=== PATIENT | female | born 1965 | race Caucasian/White ===

== ENCOUNTER → 2020-05-26 13:35 | Outpatient (CLI) | payer OTHER, MEDICAID, SELFPAY ==
[2020-05-26 14:47] LABS: Hemoglobin A1C% w Est Avg Glu 7.7 % (4.0-6.0)
[2020-05-26 15:06] LABS: Alanine Aminotransferase 11 IU/L (<35); Albumin 4.5 g/dL (3.5-5.0); Albumin Globulin Ratio 1.4 (1.0-2.8); Alkaline Phosphatase 130 U/L (38-126); Aspartate Aminotransferase 19 IU/L (14-36); Bilirubin Total 0.6 mg/dL (0.2-1.3); Blood Urea Nitrogen 15 mg/dL (7-17); Calcium 10.1 mg/dL (8.4-10.2); Carbon Dioxide 26 mmol/L (22-32); Chloride 100 mmol/L (98-107); Cholesterol 197 mg/dL (140-199); Estimated Glomerular Filt Rate > 60.0 mL/min (>60); Globulin 3.3 g/dL (1.7-4.1); Glucose 125 mg/dL (70-100); HDL Cholesterol 52 mg/dL (40-60); HEMOLYSIS < 15 (0-50); LDL Cholesterol Calculated 110 mg/dL (<100); Potassium 4.7 mmol/L (3.4-5.1); Sodium 136 mmol/L (137-145); Total Protein 7.8 g/dL (6.3-8.2); Triglycerides 174 mg/dL (35-150)
[2020-05-26 15:07] LABS: Creatinine Urine Random 68.5 mg/dL
[2020-05-26 15:11] LABS: Microalbumi Creatinin Ratio Ur 8.7 ug/mg CR (<30); Microalbumin Urine Random < 0.6 mg/dL (0-1.6)
[2020-05-26 15:21] LABS: Vitamin D 25 Hydroxy (D3) 40.6 ng/mL (30.0-100.0)
== END ==
PROVIDERS: PCP Student in an Organized Health Care Education/Training Program; Referring Provider Student in an Organized Health Care Education/Training Program; Visit Provider Student in an Organized Health Care Education/Training Program
DX: E55.9 Vitamin D deficiency, unspecified (principal); Z78.0 Asymptomatic menopausal state; E11.69 Type 2 diabetes mellitus with other specified complication; E78.5 Hyperlipidemia, unspecified; I10 Essential (primary) hypertension
CPT/HCPCS: 36415; 80053; 80061; 82043; 82306; 82570; 83036

== ENCOUNTER → 2020-08-23 11:33 | Outpatient (CLI) | payer OTHER, MEDICAID, SELFPAY ==
[2020-08-23 12:06] LABS: Hemoglobin A1C% w Est Avg Glu 7.4 % (4.0-6.0)
== END ==
PROVIDERS: PCP Student in an Organized Health Care Education/Training Program; Referring Provider Student in an Organized Health Care Education/Training Program; Visit Provider Student in an Organized Health Care Education/Training Program
DX: E11.9 Type 2 diabetes mellitus without complications (principal)
CPT/HCPCS: 36415; 83036

== ENCOUNTER → 2020-10-06 13:44 | Outpatient (CLI) | payer OTHER, MEDICAID, SELFPAY | PROVIDERS: PCP Student in an Organized Health Care Education/Training Program; Visit Provider Student in an Organized Health Care Education/Training Program | DX: L02.91 Cutaneous abscess, unspecified (principal) | CPT/HCPCS: 87070; 87075; 87205 ==

== ENCOUNTER → 2021-02-12 13:41 | Outpatient (CLI) | payer OTHER, MEDICAID, SELFPAY ==
[2021-02-12 14:17] LABS: Hemoglobin A1C% w Est Avg Glu 5.6 % (4.0-6.0)
[2021-02-12 14:48] LABS: BUN Creatinine Ratio 25.3 (6-22); Blood Urea Nitrogen 22 mg/dL (7-17); Calcium 9.5 mg/dL (8.4-10.2); Carbon Dioxide 30 mmol/L (22-32); Chloride 102 mmol/L (98-107); Estimated Glomerular Filt Rate > 60.0 mL/min (>60); Glucose 123 mg/dL (70-100); HEMOLYSIS < 15 (0-50); Potassium 5.3 mmol/L (3.4-5.1); Sodium 138 mmol/L (137-145)
== END ==
PROVIDERS: PCP Student in an Organized Health Care Education/Training Program; Referring Provider Student in an Organized Health Care Education/Training Program; Visit Provider Student in an Organized Health Care Education/Training Program
DX: I10 Essential (primary) hypertension (principal); E11.9 Type 2 diabetes mellitus without complications
CPT/HCPCS: 36415; 80048; 83036

== ENCOUNTER → 2021-04-25 13:22 | Outpatient (CLI) | payer OTHER, MEDICAID, SELFPAY ==
--- NOTE | 2021-04-25 13:26 | DI.RAD.S_ITS ---
PROCEDURE: XR CERVICAL SPINE 2V OR 3V INDICATIONS: Hand numbness, bilateral TECHNIQUE: 3 view(s) of the cervical spine were acquired. COMPARISON: None. FINDINGS: Bones: No fractures or dislocations to the C7 level. Moderate degenerative change most pronounced at C4-C5. There are prominent osteophytes, intervertebral disc space height loss and endplate sclerosis. Uncovertebral joint hypertrophy. The lateral masses of C1 appear intact on the odontoid view. No suspicious bony lesions. Soft tissues: No prevertebral soft tissue swelling. IMPRESSION: Moderate degenerative change most pronounced at C4-C5. Dictated by: Donaldo Sosa M.D. on 04/25/2021 at 16:08 Approved by: Donaldo Sosa M.D. on 04/25/2021 at 16:10
== END ==
PROVIDERS: PCP Student in an Organized Health Care Education/Training Program; Referring Provider Student in an Organized Health Care Education/Training Program; Visit Provider Student in an Organized Health Care Education/Training Program
DX: R20.0 Anesthesia of skin (principal)
CPT/HCPCS: 72040

== ENCOUNTER → 2021-05-16 13:13 | Outpatient (CLI) | payer OTHER, MEDICAID, SELFPAY | PROVIDERS: PCP Student in an Organized Health Care Education/Training Program; Referring Provider Student in an Organized Health Care Education/Training Program; Visit Provider Student in an Organized Health Care Education/Training Program | DX: E11.9 Type 2 diabetes mellitus without complications (principal) | CPT/HCPCS: 36415; 83036 ==

== ENCOUNTER → 2021-10-10 10:58 | Outpatient (CLI) | payer OTHER, MEDICAID, SELFPAY ==
[2021-10-10 12:01] LABS: Hemoglobin A1C% w Est Avg Glu 5.5 % (4.0-6.0)
[2021-10-10 12:15] LABS: BUN Creatinine Ratio 22.1 (6-22); Blood Urea Nitrogen 19 mg/dL (7-17); Calcium 10.1 mg/dL (8.4-10.2); Carbon Dioxide 31 mmol/L (22-32); Chloride 103 mmol/L (98-107); Estimated Glomerular Filt Rate > 60.0 mL/min (>60); Glucose 106 mg/dL (70-100); HEMOLYSIS < 15 (0-50); Sodium 141 mmol/L (137-145)
[2021-10-10 12:16] LABS: Potassium 5.4 mmol/L (3.4-5.1)
== END ==
PROVIDERS: PCP Student in an Organized Health Care Education/Training Program; Referring Provider Student in an Organized Health Care Education/Training Program; Visit Provider Student in an Organized Health Care Education/Training Program
DX: I10 Essential (primary) hypertension (principal); E11.9 Type 2 diabetes mellitus without complications
CPT/HCPCS: 36415; 80048; 83036

== ENCOUNTER → 2022-06-26 14:27 | Outpatient (CLI) | payer OTHER, MEDICAID, SELFPAY ==
[2022-06-26 16:02] LABS: BUN Creatinine Ratio 16.3 (6-22); Blood Urea Nitrogen 13 mg/dL (7-17); Carbon Dioxide 30 mmol/L (22-32); Chloride 98 mmol/L (98-107); Creatine Kinase 58 U/L (30-135); Estimated Glomerular Filt Rate > 60 mL/min (>60); Glucose 239 mg/dL (70-100); HEMOLYSIS < 15 (0-50); Magnesium 2.2 mg/dL (1.6-2.3); Potassium 4.5 mmol/L (3.4-5.1); Sodium 135 mmol/L (137-145)
[2022-06-27 05:20] LABS: Fructosamine 356 umol/L (0-285)
== END ==
PROVIDERS: PCP Student in an Organized Health Care Education/Training Program; Referring Provider Student in an Organized Health Care Education/Training Program; Visit Provider Student in an Organized Health Care Education/Training Program
DX: E11.9 Type 2 diabetes mellitus without complications (principal); R21 Rash and other nonspecific skin eruption; R25.2 Cramp and spasm
CPT/HCPCS: 36415; 80048; 82550; 82985; 83735

== ENCOUNTER → 2022-10-07 13:53 | Outpatient (CLI) | payer OTHER, MEDICAID, SELFPAY ==
[2022-10-07 14:33] LABS: Hemoglobin A1C% w Est Avg Glu 9.6 % (4.0-6.0)
[2022-10-07 14:56] LABS: Creatinine Urine Random 44.5 mg/dL
[2022-10-07 15:02] LABS: Microalbumin Urine Random < 0.6 mg/dL (0-1.6)
== END ==
PROVIDERS: PCP Student in an Organized Health Care Education/Training Program; Referring Provider Student in an Organized Health Care Education/Training Program; Visit Provider Student in an Organized Health Care Education/Training Program
DX: E11.9 Type 2 diabetes mellitus without complications (principal)
CPT/HCPCS: 36415; 82043; 82570; 83036

== ENCOUNTER → 2023-12-24 11:16 | Outpatient (CLI) | payer OTHER, MEDICAID, SELFPAY ==
[2023-12-24 12:03] LABS: Add Manual Diff / Slide Review NO; Basophils Absolute Auto 100 /uL (0-100); Basophils Percent Auto 0.9 % (0-2); Eosinophils Absolute Auto 200 /uL (0-450); Eosinophils Percent Auto 3.7 % (2-4); Hematocrit 37.4 % (36-46); Hemoglobin 12.6 g/dL (12.0-16.0); Lymphocytes Absolute Auto 1100 /uL (1100-4500); Lymphocytes Percent Auto 18.2 % (25-40); Mean Corpuscular HGB Conc 33.7 % (30-36); Mean Corpuscular Hemoglobin 32.7 PG (26-34); Mean Corpuscular Volume 97.2 fL (80-100); Monocytes Absolute Auto 500 /uL (0-900); Monocytes Percent Auto 8.4 % (3-14); Neutrophils Absolute Auto 4300 /uL (1500-7000); Neutrophils Percent Auto 68.8 % (50-75); Platelet Count 219 X10^3/uL (150-400); Red Blood Cell Count 3.85 X10^6/uL (4.0-5.2); Red Cell Distribution Width 13.2 % (11.6-14.8); White Blood Cell Count 6.3 X10^3/uL (4.5-11.0)
[2023-12-24 12:06] LABS: UR Morphine/Opiate cutoff 300 Negative (Negative); Ur Creatinine Normal (Normal); Ur Specific Gravity Normal (Normal); Urine Amphetamines Negative (Negative); Urine Cocaine Negative (Negative); Urine Methamphetamines Negative (Negative); Urine Phencyclidine Negative (Negative); Urine Tetrahydrocannabinol Positive (Negative); Urine pH Normal (Normal)
[2023-12-24 12:07] LABS: Urine Barbiturates Negative (Negative); Urine Benzodiazepines Positive (Negative); Urine MDMA Negative (Negative); Urine Methadone Negative (Negative); Urine Oxycodone Negative (Negative); Urine Tricyclic Antidepressant Positive (Negative)
[2023-12-24 12:09] LABS: Hemoglobin A1C% w Est Avg Glu 7.3 % (4.0-6.0)
[2023-12-24 12:21] LABS: Alanine Aminotransferase 15 IU/L (<35); Albumin 3.8 g/dL (3.5-5.0); Albumin Globulin Ratio 1.2 (1.0-2.8); Alkaline Phosphatase 83 U/L (38-126); Aspartate Aminotransferase 24 IU/L (14-36); BUN Creatinine Ratio 18.8 (6-22); Bilirubin Total 0.5 mg/dL (0.2-1.3); Blood Urea Nitrogen 16 mg/dL (7-17); Carbon Dioxide 32 mmol/L (22-32); Chloride 97 mmol/L (98-107); Cholesterol 140 mg/dL (140-199); Estimated Glomerular Filt Rate > 60 mL/min (>60); Globulin 3.1 g/dL (1.7-4.1); Glucose 129 mg/dL (70-100); HDL Cholesterol 48 mg/dL (40-60); HEMOLYSIS < 15 (0-50); LDL Cholesterol Calculated 72 mg/dL (<100); Potassium 4.6 mmol/L (3.4-5.1); Sodium 135 mmol/L (137-145); Total Protein 6.9 g/dL (6.3-8.2); Triglycerides 101 mg/dL (35-150)
[2023-12-24 12:25] LABS: Microalbumin Urine Random < 0.6 mg/dL (0-1.6)
[2023-12-24 12:51] LABS: TSH w/ Reflex to FT4 1.39 uIU/mL (0.47-4.68)
== END ==
LOC: LAB 11:19
PROVIDERS: Family Medicine; PCP Family Medicine; Referring Provider Family Medicine; Visit Provider Family Medicine
DX: I10 Essential (primary) hypertension (principal); E11.69 Type 2 diabetes mellitus with other specified complication; E78.5 Hyperlipidemia, unspecified; E11.9 Type 2 diabetes mellitus without complications; F13.20 Sedative, hypnotic or anxiolytic dependence, uncomplicated; E66.01 Morbid (severe) obesity due to excess calories
CPT/HCPCS: 36415; 80053; 80061; 80305; 82043; 82570; 83036; 84443; 85025

== ENCOUNTER 2024-02-15 18:15 | Emergency (ER) | payer OTHER, MEDICAID, SELFPAY ==
[2024-02-15] VITALS (17 sets, daily range): BP systolic 138–209; BP diastolic 67–90; PULSE 90–106; RESP 14–18; TEMP 36.9; O2SAT 86–100; BMI 43.2
[2024-02-15 18:29] LABS: Add Manual Diff / Slide Review NO; Basophils Absolute Auto 100 /uL (0-100); Basophils Percent Auto 0.6 % (0-2); Eosinophils Absolute Auto 200 /uL (0-450); Eosinophils Percent Auto 1.5 % (2-4); Hematocrit 40.8 % (36-46); Hemoglobin 13.6 g/dL (12.0-16.0); Lymphocytes Absolute Auto 1500 /uL (1100-4500); Lymphocytes Percent Auto 13.4 % (25-40); Mean Corpuscular HGB Conc 33.3 % (30-36); Mean Corpuscular Hemoglobin 32.9 PG (26-34); Mean Corpuscular Volume 98.8 fL (80-100); Monocytes Absolute Auto 900 /uL (0-900); Monocytes Percent Auto 7.7 % (3-14); Neutrophils Absolute Auto 8900 /uL (1500-7000); Neutrophils Percent Auto 76.8 % (50-75); Platelet Count 225 X10^3/uL (150-400); Red Blood Cell Count 4.13 X10^6/uL (4.0-5.2); Red Cell Distribution Width 13.8 % (11.6-14.8); White Blood Cell Count 11.6 X10^3/uL (4.5-11.0)
--- NOTE | 2024-02-15 18:39 | ED_ITS ---
HPI - Nausea/Vomiting/Diarrhea General Chief complaint: Nausea/Vomiting/Diarrhea Stated complaint: NAUSEA, CRAMPING, DIARRHEA Time Seen by Provider: 02/15/24 18:16 Source: patient Mode of arrival: Ambulatory History of Present Illness HPI Narrative: 58-year-old female who is here for evaluation of approximately 5 days of nausea and abdominal cramping and diarrhea. States her symptoms 1st started with the abdominal cramping. She did have some bright red blood in her stool. States she put herself on a clear liquid diet. When a couple days on a clear liquid diet. [place] like her symptoms did improve. Today she stated that she tried to introduce solid foods and the diarrhea returned in the nausea returned in the abdominal cramping returned. No fevers. No recent travel. No recent antibiotics. No urinary symptoms. No vaginal bleeding. No prior abdominal surgeries. Describes the abdominal cramping is diffuse throughout her abdomen. No chest pain or shortness of breath Related Data Home Medications Medication Instructions Recorded Confirmed aspirin 81 mg tablet,delayed 81 mg PO DAILY 05/26/20 12/24/23 release apple cider vinegar 450mg 1 tab PO DAILY 11/05/23 12/24/23 ceyon cinnamon 1200mg 1 tab PO DAILY 11/05/23 12/24/23 cholecalciferol (vitamin D3) 50 50 mcg PO DAILY 11/05/23 12/24/23 mcg (2,000 unit) capsule chromium 200 mcg-brindal nair 500 1 tab PO ONCE 11/05/23 12/24/23 mg tablet (Garcinia Cambogia) cyanocobalamin (vitamin B-12) 500 500 mcg sublingual DAILY 11/05/23 12/24/23 mcg sublingual tablet oexyyriq-zvf-mdxip ac 400 tab PO 11/05/23 12/24/23 mcg-calcium carb 500 mg-vit K1 20 mcg tablet (Women's 50 Plus Multivitamin) blood sugar diagnostic (True #10 ea 12/24/23 12/24/23 Metrix Glucose Test Strip) Previous Rx's Medication Instructions Recorded glucose meter #1 ea 08/05/23 glucose test trips #100 ea 08/05/23 atorvastatin 40 mg tablet 40 mg PO BEDTIME #90 tabs 08/07/23 buspirone 10 mg tablet 10 mg PO TID #270 tabs 10/03/23 escitalopram oxalate 20 mg tablet 20 mg PO DAILY #90 tabs 10/03/23 lisinopril 10 mg tablet See Rx Instructions .Route 10/03/23 .COMPLEX #90 tabs pioglitazone 30 mg tablet 30 mg PO DAILY #90 tabs 10/03/23 sitagliptin phosphate 100 mg tablet 100 mg PO DAILY #90 tabs 10/03/23 exenatide microspheres 2 mg/0.85 2 mg (0.85 mL) SUBCUT Q7D #3.4 mL 12/25/23 mL subcutaneous auto-injector alprazolam 0.5 mg tablet 0.5 mg PO BID PRN anxiety #20 tabs 12/29/23 gabapentin 300 mg capsule 900 mg (3 x 300 mg) PO BID #540 12/29/23 caps alprazolam 0.5 mg tablet 0.5 mg PO BID PRN anxiety #20 tabs 12/31/23 amitriptyline 100 mg tablet 100 mg PO DAILY #30 tabs 02/09/24 Allergies Allergy/AdvReac Type Severity Reaction Status Date / Time No Known Drug Allergies Allergy Verified 02/15/24 18:22 Review of Systems Review of Systems Narrative: See HPI Patient History Medical History Degenerative disk disease Osteoarthritis of cervical spine determined by x-ray Takayasu's arteritis Social History Smoking Status: Former smoker Smoking Status: Former smoker Substance Use Type: does not use Exam Initial Vital Signs Initial Vital Signs: Vital Signs Pulse Oximetry 100 02/15/24 18:18 Const General: cooperative, comfortable and No ill appearing [facility] Head: normal to inspection and normocephalic Resp Effort & Inspection: normal respiratory effort Auscultation: clear to auscultation bilaterally Cardio Rate: regular rate Rhythm: regular rhythm GI Inspection: normal to inspection and non-distended Palpation: soft, No firm, No guarding and tender Skin General: no rashes or lesions noted Neuro General: patient alert, patient awake, patient oriented x3 and moves all extremities Extrem General: capillary refill normal Course Orders Ordered: ED Orders 02/15/24 18:20 Complete Blood Count AUTO DIFF Stat Comprehensive Metabolic Panel Stat Lipase Stat 02/15/24 18:39 CT abdomen pelvis w con Stat Discontinued Medications Sodium Chloride (Normal Saline 0.9%) 1,000 mls @ 1,000 mls/hr IV BOLUS ONE Stop: 02/15/24 19:21 Last Infusion: 02/15/24 20:14 Dose: Infused Documented By: Admin: 02/15/24 18:41 Dose: 1,000 mls/hr Documented By: WOODROW Lorazepam (Lorazepam 2 Mg/Ml Inj) 1 mg IV NOW ONE Stop: 02/15/24 20:50 Last Admin: 02/15/24 20:52 Dose: 1 mg Documented By: LAURA Metoclopramide HCl (Metoclopramide 10 Mg/2 Ml Inj) 10 mg IV NOW ONE Stop: 02/15/24 20:05 Last Admin: 02/15/24 20:14 Dose: 10 mg Documented By: LAURA Morphine Sulfate (Morphine 4 Mg/Ml Inj) 4 mg IV NOW ONE Stop: 02/15/24 19:22 Last Admin: 02/15/24 19:28 Dose: 4 mg Documented By: LAURA Ondansetron HCl (Ondansetron 4 Mg/2 Ml Inj) 4 mg IV NOW ONE Stop: 02/15/24 18:40 Last Admin: 02/15/24 18:42 Dose: 4 mg Documented By: WOODROW Ondansetron HCl (Ondansetron 4 Mg Odt Prepack) 1 bottle MISC DIRECTED ONE Stop: 02/15/24 21:34 Last Admin: 02/16/24 00:25 Dose: 1 bottle Vital Signs Vital signs: Vital Signs - 8 hr 02/15/24 18:18 02/15/24 18:19 02/15/24 18:19 Temperature Pulse Rate 104 H Respiratory Rate 18 Blood Pressure 209/89 H Pulse Oximetry 100 96 Oxygen Delivery Method Room Air Oxygen Flow Rate 02/15/24 18:22 02/15/24 18:30 02/15/24 18:30 Temperature 98.4 F Pulse Rate 106 H 90 Respiratory Rate 18 Blood Pressure 209/89 H 188/86 H Pulse Oximetry 95 98 Oxygen Delivery Method Room Air Oxygen Flow Rate 02/15/24 19:07 02/15/24 19:18 02/15/24 19:18 Temperature Pulse Rate 95 H 97 H Respiratory Rate Blood Pressure 189/90 H Pulse Oximetry 92 92 Oxygen Delivery Method Oxygen Flow Rate 02/15/24 19:30 02/15/24 20:00 02/15/24 20:00 Temperature Pulse Rate 100 H 93 H Respiratory Rate 16 Blood Pressure 201/89 H Pulse Oximetry 94 93 Oxygen Delivery Method Room Air Oxygen Flow Rate 02/15/24 20:30 02/15/24 21:38 02/15/24 21:38 Temperature Pulse Rate 92 H 96 H Respiratory Rate 14 Blood Pressure 138/67 Pulse Oximetry 94 86 L Oxygen Delivery Method Room Air Oxygen Flow Rate 02/15/24 21:40 02/15/24 21:41 02/15/24 22:00 Temperature Pulse Rate 91 H Respiratory Rate 16 16 Blood Pressure Pulse Oximetry 89 L 92 96 Oxygen Delivery Method Nasal Cannula Nasal Cannula Nasal Cannula Oxygen Flow Rate 2 2.5 2.5 02/15/24 22:30 02/15/24 23:00 02/15/24 23:30 Temperature Pulse Rate 92 H 95 H 98 H Respiratory Rate 16 16 Blood Pressure Pulse Oximetry 97 96 90 L Oxygen Delivery Method Room Air Room Air Oxygen Flow Rate 02/15/24 23:43 02/15/24 23:43 02/16/24 00:00 Temperature Pulse Rate 93 H 95 H Respiratory Rate 14 16 Blood Pressure 176/72 H Pulse Oximetry 86 L 97 Oxygen Delivery Method Room Air Nasal Cannula Oxygen Flow Rate 2.5 MDM - Nausea/Vomiting/Diarrhea Lab Data Attestation: I reviewed the patient's lab results. 02/15/24 18:20 02/15/24 18:20 Labs: Lab Results 02/15/24 Range/Units 18:20 WBC 11.6 H (4.5-11.0) X10^3/uL RBC 4.13 (4.0-5.2) X10^6/uL Hgb 13.6 (12.0-16.0) g/dL Hct 40.8 (36-46) % MCV 98.8 (80-100) fL MCH 32.9 (26-34) PG MCHC 33.3 (30-36) % RDW 13.8 (11.6-14.8) % Plt Count 225 (150-400) X10^3/uL Neut % (Auto) 76.8 H (50-75) % Lymph % (Auto) 13.4 L (25-40) % Citrus % (Auto) 7.7 (3-14) % Eos % (Auto) 1.5 L (2-4) % Baso % (Auto) 0.6 (0-2) % Neut # (Auto) 8900 H (3620-8069) /uL Lymph # (Auto) 1500 (6682-7037) /uL Citrus # (Auto) 900 (0-900) /uL Eos # (Auto) 200 (0-450) /uL Baso # (Auto) 100 (0-100) /uL Sodium 133 L (137-145) mmol/L Potassium 4.2 (3.4-5.1) mmol/L Chloride 97 L (98-107) mmol/L Carbon Dioxide 28 (22-32) mmol/L BUN 17 (7-17) mg/dL Creatinine 0.94 (0.52-1.04) mg/dL Estimated GFR > 60 (>60) mL/min BUN/Creatinine Ratio 18.1 (6-22) Glucose 214 H (70-100) mg/dL Calcium 9.4 (8.4-10.2) mg/dL Total Bilirubin 0.8 (0.2-1.3) mg/dL AST 35 (14-36) IU/L ALT 17 (<35) IU/L Alkaline Phosphatase 100 (38-126) U/L Total Protein 8.0 (6.3-8.2) g/dL Albumin 4.2 (3.5-5.0) g/dL Globulin 3.8 (1.7-4.1) g/dL Albumin/Globulin Ratio 1.1 (1.0-2.8) Lipase 104 (23-300) U/L Urine Dip Bedside Urine Glucose Negative Bedside Urine Bilirubin - Negative Bedside Urine Ketone +/- 5 Urine Specific [place] 1.010 Bedside Urine Occult Blood - Negative Bedside Urine pH 5.5 Bedside Urine Protein - Negative Bedside Urine Urobilinogen - Negative Bedside Urine Nitrite - Negative Bedside Urine Leukocytes - Negative Esterase Imaging Data CT scan - abdomen/pelvis: Radiologist's Impression: PROCEDURE: CT ABDOMEN PELVIS W CON INDICATIONS: Generalized abdominal pain with diarrhea and bleeding TECHNIQUE: After the administration of intravenous contrast, axial sections acquired from the lung bases to the pubic symphysis. Coronal and sagittal reformats were performed. For radiation dose reduction, the following was used: automated exposure control, adjustment of mA and/or kV according to patient size. COMPARISON: None. FINDINGS: Image quality: Diagnostic Lower chest: Unremarkable lung bases. Possible coronary calcifications. Mildly patulous distal esophagus. Liver: No discrete solid lesion. Possible right lobe small granuloma. Gallbladder and biliary system: Unremarkable, nondilated Pancreas: No ductal dilation. Mild parenchymal atrophy Spleen: Nonenlarged Adrenals: No discrete nodule Kidneys: There are renal cysts. No complicated cystic lesion or solid lesion requiring follow-up. No hydronephrosis. Vessels and lymph nodes: The main portal vein is patent. No abdominal aortic aneurysm or pathologic lymph nodes by size criteria. Bowel and peritoneum: Ujxu-gl-qzybxwww distention of the stomach. No pathologic ascites or drainable abscess. Mild focal inflammatory changes at the distal descending colon and proximal sigmoid colon. Colonic diverticula are present. The appendix is nondilated. Cfqt-ki-eiykwbvr mesenteric fat stranding is present in the jejunal mesentery, sometimes seen sequelae of mesenteric panniculitis, nonspecific. Body wall: Unremarkable Pelvis: Bladder is under distended and not well evaluated. Uterus is absent. Bones: Degenerative changes, no acute or suspicious abnormality. Upper lumbar spine sclerosis likely related to [place] changes. IMPRESSION: Suspected distal colitis. Diverticula are also present, however there is no definite focal acute inflammation. Consider correlation with age-appropriate colonoscopy results following treatment. No small bowel obstruction or abscess. Other findings as above. MDM Narrative Medical decision making narrative: CT scan shows colitis but no signs of acute surgical pathology. No recent travel. No recent antibiotics. There was no indication for antibiotics based on her symptoms and CT scan findings today. Labs are relatively unremarkable. Patient initially was discharged but then did have an episode of hypoxia. I suspect that this was the Ativan. She was kept here in the emergency department for extended period of time. When she was awake and walking around she had no episodes of hypoxia. She fell asleep she did become hypoxic into the upper 80s. I suspect this is baseline for her. She was asymptomatic from it. She was clinically sober. Will discharge patient home with instructions follow-up with primary doctor. She was given return precautions. Discharge Plan Departure Patient Disposition: Home Clinical Impression: Colitis Instructions: DI for Diarrhea and Traveler's Diarrhea -- Adult, DI for Colitis Activity Restrictions/Additional Instructions: I do recommend that you continue to take all of your medications as directed. I also recommend a bland diet and using the nausea medication as needed. Contact your primary care doctor for a follow-up. Return to the emergency department for new symptoms. Prescriptions: No Action cyanocobalamin (vitamin B-12) 500 mcg tablet, sublingual 500 mcg sublingual DAILY cholecalciferol (vitamin D3) 50 mcg (2,000 unit) capsule 50 mcg PO DAILY apple cider vinegar 450mg 1 tab PO DAILY ceyon cinnamon 1200mg 1 tab PO DAILY Garcinia Cambogia 200-500 mcg-mg tablet 1 tab PO ONCE Women's 50 Plus Multivitamin 400 mcg-500 mg calcium-20 mcg tablet PO pioglitazone 30 mg tablet 30 mg PO DAILY Qty: 90 1RF sitagliptin phosphate 100 mg tablet 100 mg PO DAILY Qty: 90 1RF Hold Instructions: Needs labs lisinopril 10 mg tablet See Rx Instructions .ROUTE .COMPLEX Qty: 90 1RF Dose Instruction: TAKE ONE TABLET BY MOUTH ONE TIME DAILY Rx Instructions: TAKE ONE TABLET BY MOUTH ONE TIME DAILY buspirone 10 mg tablet 10 mg PO TID Qty: 270 1RF escitalopram oxalate 20 mg tablet 20 mg PO DAILY Qty: 90 1RF atorvastatin 40 mg tablet 40 mg PO BEDTIME Qty: 90 1RF Hold Instructions: Needs labs exenatide microspheres 2 mg/0.85 mL auto-injector 2 mg SUBCUT Q7D Qty: 3.4 2RF alprazolam 0.5 mg tablet 0.5 mg PO BID PRN (Reason: anxiety) Qty: 20 0RF gabapentin 300 mg capsule 900 mg PO BID Qty: 540 0RF alprazolam 0.5 mg tablet 0.5 mg PO BID PRN (Reason: anxiety) Qty: 20 0RF amitriptyline 100 mg tablet 100 mg PO DAILY Qty: 30 1RF aspirin 81 mg tablet,delayed release (DR/EC) 81 mg PO DAILY (DME) True Metrix Glucose Test Strip Strip See Rx Instructions .ROUTE .MEDSUPPLY Qty: 10 Patient Comments: [NO ORIGINAL SIG] Rx Instructions: As directed (DME) glucose meter See Rx Instructions .Route .MEDSUPPLY Qty: 1 0RF Rx Instructions: check blood sugars once a day (DME) glucose test trips See Rx Instructions .Route .MEDSUPPLY Qty: 100 1RF Rx Instructions: check blood sugars once a day Referrals: Michelle Verde DO [Primary Care Provider] - Stand Alone Forms: Patient Portal/API
[2024-02-15 18:41] LABS: Alanine Aminotransferase 17 IU/L (<35); Albumin 4.2 g/dL (3.5-5.0); Albumin Globulin Ratio 1.1 (1.0-2.8); Alkaline Phosphatase 100 U/L (38-126); Aspartate Aminotransferase 35 IU/L (14-36); BUN Creatinine Ratio 18.1 (6-22); Bilirubin Total 0.8 mg/dL (0.2-1.3); Blood Urea Nitrogen 17 mg/dL (7-17); Calcium 9.4 mg/dL (8.4-10.2); Carbon Dioxide 28 mmol/L (22-32); Chloride 97 mmol/L (98-107); Estimated Glomerular Filt Rate > 60 mL/min (>60); Globulin 3.8 g/dL (1.7-4.1); Glucose 214 mg/dL (70-100); Lipase 104 U/L (23-300); Sodium 133 mmol/L (137-145)
[2024-02-15] MEDS: SODIUM CHLORIDE 0.9% 1,000 ML 1000 ML IV (18:41)
[2024-02-15] MEDS: ONDANSETRON 4 MG/2 ML INJ IV (18:42)
[2024-02-15 18:45] LABS: HEMOLYSIS 58 (0-50)
[2024-02-15 18:46] LABS: Potassium 4.2 mmol/L (3.4-5.1)
[2024-02-15] MEDS: MORPHINE 4 MG/ML INJ IV (19:28)
[2024-02-15] MEDS: METOCLOPRAMIDE 10 MG/2 ML INJ IV (20:14)
[2024-02-15] MEDS: LORazepam 2 MG/ML INJ 1 MG IV (20:52)
[2024-02-16] VITALS: PULSE 95; RESP 16; O2SAT 97
[2024-02-16 00:15] VITALS: RESP 16; O2SAT 96
--- NOTE | 2024-02-16 00:20 | PC.NURSE ---
Patient sitting up out of bed, attempting to eat some crackers. patient is no longer using supplemental O2. On RA, spO2 >95%. Patient has been ambulatory to bathroom. She denies any weakness/lightheadedness/dizziness. Patient reports being comfortable with going home at this time. MD updated and discharge paperwork prepared and patient provided with pre-pack of ODT Zofran.
[2024-02-16] MEDS: ONDANSETRON 4 MG ODT PREPACK 1 BOTTLE MISC (00:25)
== END 2024-02-16 00:35 | disposition home or self-care (01) ==
PROVIDERS: Emergency Provider Emergency Medicine; PCP Family Medicine
DX: K52.9 Noninfective gastroenteritis and colitis, unspecified (principal)
CPT/HCPCS: 74177; 80053; 81003; 83690; 85025; 96361; 96374; 96375; 99284; J2060; J2270; J2405; J2765; Q9967

== ENCOUNTER → 2024-11-30 13:21 | Outpatient (CLI) | payer OTHER, SELFPAY ==
[2024-11-30 14:31] LABS: Add Manual Diff / Slide Review NO; Basophils Absolute Auto 100 /uL (0-100); Basophils Percent Auto 0.9 % (0-2); Eosinophils Absolute Auto 200 /uL (0-450); Eosinophils Percent Auto 2.3 % (2-4); Hemoglobin 13.5 g/dL (12.0-16.0); Lymphocytes Absolute Auto 1300 /uL (1100-4500); Lymphocytes Percent Auto 18.9 % (25-40); Mean Corpuscular HGB Conc 32.9 % (30-36); Mean Corpuscular Hemoglobin 32.5 PG (26-34); Mean Corpuscular Volume 98.7 fL (80-100); Monocytes Absolute Auto 500 /uL (0-900); Monocytes Percent Auto 7.1 % (3-14); Neutrophils Absolute Auto 4700 /uL (1500-7000); Neutrophils Percent Auto 70.8 % (50-75); Platelet Count 227 X10^3/uL (150-400); Red Blood Cell Count 4.15 X10^6/uL (4.0-5.2); Red Cell Distribution Width 13.6 % (11.6-14.8); White Blood Cell Count 6.7 X10^3/uL (4.5-11.0)
[2024-11-30 14:52] LABS: Hemoglobin A1C% w Est Avg Glu 6.9 % (4.0-6.0)
[2024-11-30 14:56] LABS: Alanine Aminotransferase 15 IU/L (<35); Albumin 4.3 g/dL (3.5-5.0); Albumin Globulin Ratio 1.5 (1.0-2.8); Alkaline Phosphatase 93 U/L (38-126); Aspartate Aminotransferase 29 IU/L (14-36); BUN Creatinine Ratio 18.6 (6-22); Bilirubin Total 0.5 mg/dL (0.2-1.3); Blood Urea Nitrogen 16 mg/dL (7-17); Calcium 9.5 mg/dL (8.4-10.2); Carbon Dioxide 31 mmol/L (22-32); Chloride 100 mmol/L (98-107); Cholesterol 163 mg/dL (140-199); Estimated Glomerular Filt Rate > 60 mL/min (>60); Globulin 2.8 g/dL (1.7-4.1); Glucose 147 mg/dL (80-110); HDL Cholesterol 75 mg/dL (40-60); HEMOLYSIS 19 (0-50); HEMOLYSIS 28 (0-50); Iron 75 ug/dL (37-170); LDL Cholesterol Calculated 69 mg/dL (<100); Magnesium 1.8 mg/dL (1.6-2.3); Potassium 5.2 mmol/L (3.4-5.1); Sodium 137 mmol/L (137-145); Total Protein 7.1 g/dL (6.3-8.2); Triglycerides 97 mg/dL (35-150)
[2024-11-30 15:07] LABS: Percent Iron Saturation 31 % (15-50); Total Iron Binding Capacity 243 ug/dL (265-497); Transferrin 224 mg/dL (206-381)
[2024-11-30 15:19] LABS: Creatinine Urine Random 63.91 mg/dL
[2024-11-30 15:25] LABS: Microalbumin Urine Random < 0.6 mg/dL (0-1.6)
[2024-11-30 15:41] LABS: Vitamin B12 > 1000 pg/mL (239-931)
== END ==
PROVIDERS: PCP Family Medicine; Referring Provider Family Medicine; Visit Provider Family Medicine
DX: G47.62 Sleep related leg cramps (principal); R25.1 Tremor, unspecified; I10 Essential (primary) hypertension; E11.69 Type 2 diabetes mellitus with other specified complication; F13.20 Sedative, hypnotic or anxiolytic dependence, uncomplicated; E78.5 Hyperlipidemia, unspecified; Z68.41 Body mass index [BMI] 40.0-44.9, adult; Z79.899 Other long term (current) drug therapy
CPT/HCPCS: 36415; 80053; 80061; 82043; 82570; 82607; 83036; 83540; 83550; 83735; 85025

== ENCOUNTER 2024-12-15 10:45 | Emergency (ER) | payer OTHER, SELFPAY ==
[2024-12-15 10:49] VITALS: BP 116/59; PULSE 74; RESP 26; TEMP 36.8; O2SAT 92; BMI 41.9
--- NOTE | 2024-12-15 10:54 | DI.RAD.S_ITS ---
PROCEDURE: XR CHEST 1V INDICATIONS: wheezing, cough, r/o PNA TECHNIQUE: One view of the chest was acquired. COMPARISON: None. FINDINGS: Surgical changes and devices: None. Lungs and pleura: No dense airspace disease or pleural effusions Mediastinum: Normal heart size Bones and chest wall: Mild degenerative changes IMPRESSION: No acute radiographic abnormality on this single view study. Dictated by: Archie Ruiz M.D. on 12/15/2024 at 11:34 Approved by: Archie Ruiz M.D. on 12/15/2024 at 11:35
[2024-12-15 11:00] VITALS: PULSE 78; O2SAT 93
--- NOTE | 2024-12-15 11:03 | EKG_ITS ---
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
--- NOTE | 2024-12-15 11:20 | ED_ITS ---
HPI - URI/Sore Throat General Chief Complaint: Shortness of Breath/Dyspnea Stated Complaint: Per patient might have Pneumonia Time Seen by Provider: 12/15/24 11:14 History of Present Illness HPI Narrative: Patient here for cough cold congestion for the past 6 days. No known sick contacts. Patient lives alone. Patient has stopped smoking about 3 years ago. No previous diagnosis of emphysema COPD or asthma. Feels short of breath. Patient has dry cough during exam. Chest hurts when she coughs. Not requiring supplemental oxygen. Related Data Home Medications Medication Instructions Recorded Confirmed aspirin 81 mg tablet,delayed 81 mg PO DAILY 05/26/20 10/28/24 release apple cider vinegar 450mg 1 tab PO DAILY 11/05/23 10/28/24 cholecalciferol (vitamin D3) 50 50 mcg PO DAILY 11/05/23 10/28/24 mcg (2,000 unit) capsule cyanocobalamin (vitamin B-12) 500 500 mcg sublingual DAILY 11/05/23 10/28/24 mcg sublingual tablet thncbkam-dam-fmjfh ac 400 tab PO 11/05/23 10/28/24 mcg-calcium carb 500 mg-vit K1 20 mcg tablet (Women's 50 Plus Multivitamin) blood sugar diagnostic (True #10 ea 12/24/23 10/28/24 Metrix Glucose Test Strip) ashwagandha root extract 300 mg mg PO 08/31/24 10/28/24 capsule Previous Rx's Medication Instructions Recorded glucose meter #1 ea 08/05/23 glucose test trips #100 ea 08/05/23 furosemide 20 mg tablet (Lasix) 10 mg (1/2 x 20 mg) PO DAILY PRN 07/28/24 edema #10 tabs escitalopram oxalate 20 mg tablet 20 mg PO DAILY #90 tabs 08/31/24 buspirone 30 mg tablet 30 mg PO BID anxiety #60 tabs 09/29/24 sitagliptin phosphate 100 mg 100 mg PO DAILY #90 tabs 09/30/24 tablet (Januvia) lisinopril 10 mg tablet See Rx Instructions .Route 10/25/24 .COMPLEX #90 tabs gabapentin 300 mg capsule 900 mg (3 x 300 mg) PO BID #540 10/26/24 caps pioglitazone 30 mg tablet 30 mg PO DAILY #90 tabs 10/26/24 diclofenac potassium 25 mg tablet 25 mg PO DAILY PRN pain #20 tabs 10/28/24 atorvastatin 40 mg tablet 40 mg PO BEDTIME #90 tabs 11/01/24 pen needle, diabetic 32 gauge x #6 ea 11/03/2411/27 (BD Ultra-Fine Micro Pen Needle) semaglutide 0.25 mg or 0.5 mg (2 0.5 mg (0.736 mL) SUBCUT QWEEK #3 11/03/24 mg/3 mL) subcutaneous pen injector mL (Ozempic) alprazolam 0.5 mg tablet See Rx Instructions .Route 11/30/24 .COMPLEX #20 tabs eszopiclone 3 mg tablet 3 mg PO BEDTIME PRN insomnia #30 11/30/24 tabs albuterol sulfate 90 mcg/actuation 2 inhalation inhalation QID PRN 12/15/24 aerosol inhaler (Ventolin HFA) shortness of breath or wheezing #6.7 grams benzonatate 100 mg capsule 100 mg PO TID PRN cough #20 caps 12/15/24 Allergies Allergy/AdvReac Type Severity Reaction Status Date / Time No Known Drug Allergies Allergy Verified 10/28/24 12:58 Review of Systems Review of Systems Narrative: GENERAL: Positive chills, fatigue, malaise, negative fever, sweats. HEENT: Negative sinus pain, ear pain, sore throat RESPIRATORY: Negative dyspnea, positive cough CARDIOVASCULAR: Negative chest pain, palpitations GASTROINTESTINAL: Negative nausea, vomiting, abdominal pain : Negative dysuria, frequency, hematuria MUSCULOSKELETAL: Positive muscle or bony pain SKIN: Negative rash, skin lesions NEUROLOGIC: Negative weakness, numbness ROS Unobtainable: All systems reviewed & are unremarkable except as noted in HPI and below Patient History Medical History (Updated 12/15/24 @ 12:09 by Torey Mendez MD) Insomnia due to anxiety and fear Degenerative disk disease Osteoarthritis of cervical spine determined by x-ray Takayasu's arteritis Social History Smoking Status: Former smoker Smoking Status: Former smoker Exam Narrative Exam Narrative: GENERAL: in no distress, not toxic not dyspneic HEAD: Normocephalic. EYES: Pupils equal round ENT: Mucous membranes moist. NECK: Trachea midline. CARDIOVASCULAR: Regular rate and rhythm RESPIRATORY: Clear to auscultation. Breath sounds equal bilaterally. No wheezes, rales, or rhonchi. There is slightly diminished lung sounds bilaterally. Patient is speaking full sentences. No respiratory distress. GASTROINTESTINAL: Abdomen soft, non-tender EXTREMITIES: No gross deformities. BACK: No flank tenderness. NEURO: AOx4. SKIN: Warm and dry PSYCH: Not anxious, is cooperative Initial Vital Signs Initial Vital Signs: Vital Signs Temperature 98.2 F 12/15/24 10:49 Pulse Rate 74 12/15/24 10:49 Respiratory Rate 26 H 12/15/24 10:49 Blood Pressure 116/59 L 12/15/24 10:49 Pulse Oximetry 92 12/15/24 10:49 Oxygen Delivery Method Room Air 12/15/24 10:49 Course Orders Ordered: ED Orders 12/15/24 10:54 XR chest 1V Stat EKG-12 Lead Stat 12/15/24 11:00 Covid-19 + FLU A/B + RSV - PCR Stat Discontinued Medications Albuterol (Albuterol 2.5 Mg/3 Ml Neb (Adult)) 2.5 mg INH NOW ONE Stop: 12/15/24 11:20 Last Admin: 12/15/24 11:32 Dose: 2.5 mg Documented By: ABNER Benzonatate (Benzonatate 100 Mg Capsule) 200 mg PO NOW ONE Stop: 12/15/24 11:20 Last Admin: 12/15/24 11:31 Dose: 200 mg Documented By: ABNER Vital Signs Vital signs: Vital Signs - 8 hr 12/15/24 10:49 12/15/24 11:00 12/15/24 11:30 Temperature 98.2 F Pulse Rate 74 78 65 Respiratory Rate 26 H Blood Pressure 116/59 L Pulse Oximetry 92 93 95 Oxygen Delivery Method Room Air Nasal Cannula Oxygen Flow Rate 1 12/15/24 11:48 12/15/24 11:48 12/15/24 12:00 Temperature Pulse Rate 68 Respiratory Rate Blood Pressure 120/53 L 119/58 L Pulse Oximetry 93 Oxygen Delivery Method Nasal Cannula Oxygen Flow Rate 1 12/15/24 12:00 Temperature Pulse Rate 59 L Respiratory Rate Blood Pressure Pulse Oximetry 91 Oxygen Delivery Method Room Air Oxygen Flow Rate MDM - URI/Sore Throat Lab Data Labs: Lab Results 12/15/24 Range/Units 11:00 SARS-CoV-2 (PCR) Negative (Negative) Influenza A (RT-PCR) Flu a positive H (NEGATIVE) Influenza B (RT-PCR) Flu b negative (NEGATIVE) RSV (PCR) Negative (Negative) Imaging Data Chest x-ray: Radiologist's Impression: [address] [address] XRay Report Signed Patient: Elvie Shipman MR#: [id number] : 1965 Acct:[id number] Age/Sex: 59 / F Date of Service: 12/15/24 Loc: ED Accession Number: [id number] Procedure: XR chest 1V Ordering Provider: Torey Mendez MD PROCEDURE: XR CHEST 1V INDICATIONS: wheezing, cough, r/o PNA TECHNIQUE: One view of the chest was acquired. COMPARISON: None. FINDINGS: Surgical changes and devices: None. Lungs and pleura: No dense airspace disease or pleural effusions Mediastinum: Normal heart size Bones and chest wall: Mild degenerative changes IMPRESSION: No acute radiographic abnormality on this single view study. Dictated by: Archie Ruiz M.D. on 12/15/2024 at 11:34 Approved by: Archie Ruiz M.D. on 12/15/2024 at 11:35 [facility] Narrative Medical decision making narrative: Patient here for cough cold congestion for the past 6 days. No known sick contacts. Patient lives alone. Patient has stopped smoking about 3 years ago. No previous diagnosis of emphysema COPD or asthma. Feels short of breath. Patient has dry cough during exam. Chest hurts when she coughs. Not requiring supplemental oxygen. After history and exam EKG chest x-ray respiratory panel albuterol nebulizer Fannysalon Maria G [facility] Medical records reviewed: No recent visit for this complaint Differential considered: Includes but not limited to COVID influenza RSV pneumonia bronchitis Lab Test results independently reviewed as above. Pertinent findings: Respiratory panel positive influenza Independently reviewed EKG normal sinus rhythm rate 70 Imaging studies independently reviewed: Chest x-ray no acute finding Treatments: Albuterol Tessalon Perles Re-evaluations: 12:11 p.m.. Patient feeling much better. [place] better after nebulizer as well as cough medication. Reviewed results with her. Not requiring supplemental oxygen. She desires discharge home. Review with their tested positive for the flu. Discussion: Appropriate for discharge home exam is reassuring. No antibiotics are indicated. No pneumonia. Not requiring supplemental oxygen. No respiratory distress. Return precautions reviewed. She desires discharge home. Diagnosis: Influenza bronchitis Discharge Plan Departure Patient Disposition: Home Clinical Impression: Influenza A Acute bronchitis Qualifiers: Bronchitis organism: other organism Qualified Code(s): J20.8 - Acute bronchitis due to other specified organisms Instructions: DI for Acute Bronchitis, DI for Influenza -- Adult Activity Restrictions/Additional Instructions: You have bronchitis from infection with influenza/the flu. No antibiotics are needed. Cough medication and inhaler has been sent to your pharmacy to draft [facility] today. Keep well hydrated. Return if worse if any questions or concerns. Prescriptions: New benzonatate 100 mg capsule 100 mg PO TID PRN (Reason: cough) Qty: 20 0RF albuterol sulfate [Ventolin HFA] 90 mcg/actuation HFA aerosol inhaler 2 inhalation INHALATION QID PRN (Reason: shortness of breath or wheezing) Qty: 6.7 0RF No Action cyanocobalamin (vitamin B-12) 500 mcg tablet, sublingual 500 mcg sublingual DAILY cholecalciferol (vitamin D3) 50 mcg (2,000 unit) capsule 50 mcg PO DAILY apple cider vinegar 450mg 1 tab PO DAILY Women's 50 Plus Multivitamin 400 mcg-500 mg calcium-20 mcg tablet PO ashwagandha root extract 300 mg capsule PO buspirone 30 mg tablet 30 mg PO BID Qty: 60 2RF alprazolam 0.5 mg tablet See Rx Instructions .ROUTE .COMPLEX Qty: 20 0RF Rx Instructions: Take 1 tablet by mouth twice daily as needed for anxiety eszopiclone 3 mg tablet 3 mg PO BEDTIME PRN (Reason: insomnia) Qty: 30 2RF escitalopram oxalate 20 mg tablet 20 mg PO DAILY Qty: 90 1RF Januvia 100 mg tablet 100 mg PO DAILY Qty: 90 0RF Hold Instructions: Needs labs lisinopril 10 mg tablet See Rx Instructions .ROUTE .COMPLEX Qty: 90 1RF Dose Instruction: TAKE ONE TABLET BY MOUTH ONE TIME DAILY Rx Instructions: TAKE ONE TABLET BY MOUTH ONE TIME DAILY pioglitazone 30 mg tablet 30 mg PO DAILY Qty: 90 1RF gabapentin 300 mg capsule 900 mg PO BID Qty: 540 0RF atorvastatin 40 mg tablet 40 mg PO BEDTIME Qty: 90 1RF Hold Instructions: Needs labs Ozempic 0.25 mg or 0.5 mg (2 mg/3 mL) pen injector 0.5 mg SUBCUT QWEEK Qty: 3 3RF (DME) pen needle, diabetic [BD Ultra-Fine Micro Pen Needle] 32 gauge x 1/4 needle See Rx Instructions .Route Qty: 6 0RF Rx Instructions: USE TO INJECT OZEMPIC ONCE A WEEK. aspirin 81 mg tablet,delayed release (DR/EC) 81 mg PO DAILY (DME) True Metrix Glucose Test Strip Strip See Rx Instructions .ROUTE .MEDSUPPLY Qty: 10 Patient Comments: [NO ORIGINAL SIG] Rx Instructions: As directed (DME) glucose meter See Rx Instructions .Route .MEDSUPPLY Qty: 1 0RF Rx Instructions: check blood sugars once a day (DME) glucose test trips See Rx Instructions .Route .MEDSUPPLY Qty: 100 1RF Rx Instructions: check blood sugars once a day furosemide [Lasix] 20 mg tablet 10 mg PO DAILY PRN (Reason: edema) Qty: 10 0RF diclofenac potassium 25 mg tablet 25 mg PO DAILY PRN (Reason: pain) Qty: 20 0RF Referrals: Michelle Verde DO [Primary Care Provider] - Stand Alone Forms: Patient Portal/API/Survey
[2024-12-15 11:30] VITALS: PULSE 65; O2SAT 95
[2024-12-15] MEDS: BENZONATATE 100 MG CAPSULE 200 MG PO (11:31)
[2024-12-15] MEDS: ALBUTEROL 2.5 MG/3 ML NEB (ADULT) INH (11:32)
--- NOTE | 2024-12-15 11:34 | PC.NURSE ---
Patient was desatting to 87%, placed the patient on 1L NC to maintain sats above 92%. Expiratory wheezing throughout lung porras, Provider ordered neb treatment, see MAR.
[2024-12-15 11:38] LABS: Influenza A - CEPHEID Flu A POSITIVE (NEGATIVE); Influenza B - CEPHEID Flu B NEGATIVE (NEGATIVE); Respiratory Syncytial Virus Negative (Negative)
[2024-12-15 11:39] LABS: COVID-19 CEPHEID 4-PLEX PCR Negative (Negative)
[2024-12-15 11:48] VITALS: BP 120/53; PULSE 68; O2SAT 93
[2024-12-15 12:00] VITALS: BP 119/58; PULSE 59; O2SAT 91
== END 2024-12-15 12:20 | disposition home or self-care (01) ==
PROVIDERS: Emergency Provider Emergency Medicine; PCP Family Medicine
DX: J10.1 Influenza due to other identified influenza virus with other respiratory manifestations (principal); J20.8 Acute bronchitis due to other specified organisms; R07.89 Other chest pain; R06.2 Wheezing; Z87.891 Personal history of nicotine dependence
CPT/HCPCS: 0241U; 71045; 93005; 99284; J7613

== ENCOUNTER → 2025-04-29 15:00 | Outpatient (CLI) | payer OTHER, SELFPAY ==
--- NOTE | 2025-04-29 15:01 | DI.MG.S_ITS ---
MM screening mammo BI: 04/29/2025. BI-RADS: 1 CLINICAL: 59-year old female for bilateral screening mammogram. Tyrer-Cuzick lifetime risk of 4.1%. Current reported family history of breast cancer: mother. PRIOR EXAMS 01/28/2022, 11/12/2019, 07/28/2018. MAMMOGRAPHY TECHNIQUE: 2D and 3D (tomosynthesis) digital mammographic views obtained, with additional images as needed for full coverage. Current study was also evaluated with a Computer Aided Detection (CAD) system. DENSITY B. There are scattered areas of fibroglandular density. MAMMOGRAPHY FINDINGS Bilateral: No suspicious mass, asymmetry, microcalcification, or other abnormality seen. IMPRESSION: * No evidence of malignancy. RECOMMENDATIONS Bilateral * Annual screening mammography. OVERALL ASSESSMENT CATEGORY BI-RADS-1: Negative. The [employer] recommends annual screening mammography beginning at age 40 for women with average risk of breast cancer. ELECTRONICALLY SIGNED: Douglas Flores M.D. on 04/29/2025 at 10:42:40 PM PT Interpreting Station ID: [id number]
== END ==
LOC: MAMMO 15:01
PROVIDERS: PCP Family Medicine; Referring Provider Family Medicine; Visit Provider Family Medicine
DX: Z12.31 Encounter for screening mammogram for malignant neoplasm of breast (principal); Z80.3 Family history of malignant neoplasm of breast
CPT/HCPCS: 77063; 77067

== ENCOUNTER → 2025-06-27 13:51 | Outpatient (CLI) | payer OTHER, SELFPAY ==
[2025-06-27 14:51] LABS: Hemoglobin A1C% w Est Avg Glu 6.3 % (4.0-6.0)
[2025-06-27 15:02] LABS: Cholesterol 159 mg/dL (140-199); HDL Cholesterol 58 mg/dL (40-60); Triglycerides 121 mg/dL (35-150)
== END ==
PROVIDERS: PCP Family Medicine; Referring Provider Family Medicine; Visit Provider Family Medicine
DX: E78.5 Hyperlipidemia, unspecified (principal); Z12.11 Encounter for screening for malignant neoplasm of colon; E11.9 Type 2 diabetes mellitus without complications
CPT/HCPCS: 36415; 80061; 82274; 83036

== ENCOUNTER → 2025-10-11 13:42 | Outpatient (CLI) | payer OTHER, SELFPAY ==
[2025-10-11 14:08] LABS: Hemoglobin A1C% w Est Avg Glu 5.9 % (4.0-6.0)
== END ==
PROVIDERS: PCP Family Medicine; Referring Provider Student in an Organized Health Care Education/Training Program; Visit Provider Student in an Organized Health Care Education/Training Program
DX: E11.9 Type 2 diabetes mellitus without complications (principal)
CPT/HCPCS: 36415; 83036

== ENCOUNTER → 2025-10-13 13:04 | Outpatient (CLI) | payer OTHER, SELFPAY ==
[2025-10-13 13:40] LABS: UR Morphine/Opiate cutoff 300 Positive (Negative); Ur Specific Gravity Normal (Normal); Urine MDMA Negative (Negative); Urine Methamphetamines Negative (Negative); Urine Tetrahydrocannabinol Positive (Negative); Urine Tricyclic Antidepressant Negative (Negative)
== END ==
PROVIDERS: PCP Family Medicine; Referring Provider Student in an Organized Health Care Education/Training Program; Visit Provider Student in an Organized Health Care Education/Training Program
DX: Z51.81 Encounter for therapeutic drug level monitoring (principal); R78.9 Finding of unspecified substance, not normally found in blood
CPT/HCPCS: 80305